=== PATIENT | female | born 1995 | race Two or more races ===

== ENCOUNTER 2020-07-23 15:06 | Outpatient (CLI) | payer OTHER | END 2020-07-23 15:10 | disposition home or self-care (01) | LOC: LAB 15:06 | PROVIDERS: ATTEND Emergency Medicine Pediatric Emergency Medicine | DX: Z20.828 Contact with and (suspected) exposure to other viral communicable diseases (principal) ==

== ENCOUNTER 2020-10-01 15:25 | Outpatient (CLI) | payer OTHER | END 2020-10-01 15:26 | disposition home or self-care (01) | LOC: PPH VACUNA 15:25 | DX: Z23 Encounter for immunization (principal) ==